=== PATIENT | female | born 1950 | race Caucasian/White ===

== ENCOUNTER 2018-03-07 09:51 | Day surgery (SDC) | payer OTHER ==
[2018-03-07 11:40] LABS: Performing Lab VERACYTE; Test Name FNA
[2018-03-16 08:24] LABS: Result SEE PATHOTH RESULTS
== END 2018-03-07 22:58 | disposition home or self-care (01) ==
LOC: US 09:51
PROVIDERS: Internal Medicine Endocrinology, Diabetes & Metabolism
PROC: 0GBG3ZX Excision of Left Thyroid Gland Lobe, Percutaneous Approach, Diagnostic (ICD-10-PCS; principal; 2018-03-07)
DX: E04.1 Nontoxic single thyroid nodule (principal)
CPT/HCPCS: 10022; 76942

== ENCOUNTER 2018-03-27 09:47 | Day surgery (SDC) | payer OTHER ==
[~2018-03-27] VITALS: Ht 154.9 cm; Wt 60.8 kg
[~2018-03-27 09:47] MED LIST: THYR60 PO; VITAMIN B122500 MC1 PO; VITAMIN D5000 UNIT PO
== END 2018-03-27 22:59 | disposition home or self-care (01) ==
LOC: ORSCMMR 09:47 → ORD 11:00 → ORSCMMR 22:59
PROVIDERS: Internal Medicine Gastroenterology
PROC: 0DBL8ZX Excision of Transverse Colon, Via Natural or Artificial Opening Endoscopic, Diagnostic (ICD-10-PCS; principal; 2018-03-27 11:00)
PROC: 0DBN8ZX Excision of Sigmoid Colon, Via Natural or Artificial Opening Endoscopic, Diagnostic (ICD-10-PCS; principal; 2018-03-27 11:00)
PROC: 0DBC8ZX Excision of Ileocecal Valve, Via Natural or Artificial Opening Endoscopic, Diagnostic (ICD-10-PCS; principal; 2018-03-27 11:00)
PROC: 0DBK8ZX Excision of Ascending Colon, Via Natural or Artificial Opening Endoscopic, Diagnostic (ICD-10-PCS; principal; 2018-03-27 11:00)
DX: K62.5 Hemorrhage of anus and rectum (principal); K63.89 Other specified diseases of intestine; K64.8 Other hemorrhoids; R10.31 Right lower quadrant pain; K63.5 Polyp of colon; E03.9 Hypothyroidism, unspecified; Z79.899 Other long term (current) drug therapy
CPT/HCPCS: 88305; J7120

== ENCOUNTER 2019-03-15 07:24 | Day surgery (SDC) | payer OTHER ==
[~2019-03-15] VITALS: Ht 157.5 cm; Wt 49.8 kg
[~2019-03-15 07:24] MED LIST changes: +HYDROCODON-ACE118 ML PO; +MELO7.5 PO; +OMEPRAZOLE MAGN20 MG PO; +OXYC5 PO; +PROM25 PO; +Synthroid75 MCG PO; +TRAMADOL HCL E200 M1 PO; +Ultram50 MG PO
[2019-03-15] MEDS ORDERED: MORP20ER PO (07:52)
[2019-03-15] MEDS ORDERED: Miralax17 GM PO (07:53)
--- NOTE | 2019-03-15 08:25 | NUR ---
03/15/19 0825 Melida Macias PT C/O PAIN ON LEFT RIB PAIN 06/23. DR. MIR AWARE.
--- NOTE | 2019-03-15 08:45 | NUR ---
03/15/19 0845 Melida Macias PT HAD FOOD IN HER STOMACH
== END 2019-03-15 09:12 | disposition home or self-care (01) ==
LOC: ORSCSDS 07:24
PROVIDERS: Student in an Organized Health Care Education/Training Program
PROC: 0DB58ZX Excision of Esophagus, Via Natural or Artificial Opening Endoscopic, Diagnostic (ICD-10-PCS; principal; 2019-03-15 08:30)
DX: R13.10 Dysphagia, unspecified (principal); K31.84 Gastroparesis; K44.9 Diaphragmatic hernia without obstruction or gangrene; Z79.899 Other long term (current) drug therapy
CPT/HCPCS: 88305; J0330; J0461; J1980; J2405; J2704; J7120